=== PATIENT | male | born 1970 | race Hispanic/Latino ===

== ENCOUNTER 2019-03-24 23:37 | Emergency (ER) | payer OTHER ==
[~2019-03-24] VITALS: Ht 175.3 cm; Wt 99.8 kg
[2019-03-25] MEDS ORDERED: HYDROCODONE/APAP 5MG-325MG TAB PO ONE
[2019-03-25] MEDS ORDERED: KETOROLAC TROMETHAMINE 30 MG/ML VIAL IM ONE
[2019-03-25] MEDS ORDERED: ONDANSETRON HCL 4 MG ORAL DISINTEGRATING TAB PO ONE
--- NOTE | 2019-03-25 01:05 | Diagnostic Imaging Report ---
CT of the right knee without contrast History: Traumatic puncture Comparison: None available. Technique: Multidetector CT scanning of the right knee was performed. Coronal and sagittal multiplanar reformations were obtained. Discussion: Bones: No fractures or dislocations. Normal variant fabella. Joints: No joint effusion. Trace joint fluid. Normal joint alignment. Soft Tissues: Focal skin defect and underlying fat stranding in the prepatellar soft tissues. IMPRESSION: Focal laceration and edema in the prepatellar soft tissues without intra-articular or osseous injury. Signed by: Fuentes Martinez DO on 03/25/2019 1:01 AM
== END 2019-03-25 01:33 | disposition home or self-care (01) ==
LOC: ER 23:37
DX: G89.11 Acute pain due to trauma (principal); S81.031A Puncture wound without foreign body, right knee, initial encounter; W29.8XXA Contact with other powered hand tools and household machinery, initial encounter; Y99.0 Civilian activity done for income or pay; Z85.89 Personal history of malignant neoplasm of other organs and systems
CPT/HCPCS: 73700; 99283; J1885; Q0162